=== PATIENT | male | born 1995 | race Two or more races ===

== ENCOUNTER 2024-02-19 14:45 | Emergency (ER) | payer SELFPAY ==
[~2024-02-19] VITALS: Ht 167.6 cm; Wt 81.0 kg
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
[2024-02-19 15:19] VITALS: BP 142/102; PULSE 125; RESP 16; O2SAT 98
== END 2024-02-19 15:19 | disposition home or self-care (01) ==
LOC: ER 14:45
DX: R51.9 Headache, unspecified (principal)